=== PATIENT | female | born 1955 | race Caucasian/White ===

== ENCOUNTER 2018-03-23 19:23 | Emergency (ER) | payer BC ==
[2018-03-23] MEDS: ONDANSETRON HCL IV 4 MG/2 ML VIAL IVP ONE (19:49)
[2018-03-23] MEDS: 0.9 % SODIUM CHLORIDE 1000ML 1,000 ML IV SCH (19:49)
[2018-03-23] MEDS: HYDROMORPHONE HCL 2 MG/ML VIAL IVP ONE ×2 (19:49→21:56)
--- NOTE | 2018-03-23 19:50 | Emergency Department Record ---
History of Present Illness - General Stated Complaint: RT RIB PAIN Time Seen by Provider: 03/23/18 19:31 Source: Patient Mode of Arrival: Ambulatory Limitations: No limitations - History of Present Illness Initial Comments: 62 yo female presents to ED for evaluation of right sided rib pain that began approximately 72 hours ago. Patient reports shortness of breath and right chest pain with deep inspiration, denies fall or injury, but reports a long- standing history of osteoporosis. Patient denies lower extremity swelling or pain, denies history of DVT or PE. Patient does take morphine ER for her back pain. MD Complaint: Chest pain Onset/Timin -: Hour(s) Onset: Other Pain Location: Right chest Pain Radiation: None Severity: Severe Quality: Sharp Consistency: Intermittent, Getting worse Improves With: Nothing Worsens With: Inspiration Anginal Symptoms: Nausea Treatments Prior to Arrival: None - Related Data On Oral Contraceptives: No Home Medications Medication Instructions Recorded Confirmed Last Taken Alprazolam [Xanax] 0.25 mg PO ASDIR 03/23/18 03/23/18 Unknown Omeprazole [Prilosec] 20 mg PO DAILY 03/23/18 03/23/18 Unknown Allergies Allergy/AdvReac Type Severity Reaction Status Date / Time Sulfa (Sulfonamide Allergy NAUSEA AND Verified 04/24/14 15:31 Antibiotics) VOMITING Review of Systems Constitutional: Denies: Chills, Fever, Malaise, Night sweats Eyes: Denies: Eye discharge, Eye pain ENT: Denies: Congestion, Ear pain, Epistaxis Respiratory: Denies: Cough, Dyspnea Cardiovascular: Reports: Chest pain, Dyspnea on exertion. Denies: Edema, Paroxysmal nocturnal dyspnea Endocrine: Denies: Fatigue, Heat or cold intolerance Gastrointestinal: Reports: Nausea. Denies: Abdominal pain, Vomiting Genitourinary: Denies: Incontinence, Retention Musculoskeletal: Denies: Arthralgia, Back pain, Gout, Joint swelling Skin: Denies: Bruising, Change in color Neurological: Denies: Abnormal gait, Confusion, Headache Psychiatric: Denies: Anxiety Hematological/Lymphatic: Denies: Anemia, Blood Clots Past Medical History - SOCIAL HISTORY Smoking Status: Current every day smoker - RESPIRATORY Hx COPD: Yes - MUSCULOSKELETAL Hx Arthritis: Yes Comment:: spinal stenosis; ankylosing spondylitis; Deg. disc disease;bone spurs ; pelv Family Medical History Hx Cancer: Mother, Brother/Sister Hx Heart Disease: Father Physical Exam - General General Appearance: Alert, Oriented x3, Cooperative, Moderate distress Limitations: No limitations - Head Head exam: Atraumatic, Normocephalic, Normal inspection Head exam detail: negative: Abrasion, Contusion, Scott's sign, General tenderness, Hematoma, Laceration - Eye Eye exam: Normal appearance. negative: Conjunctival injection, Periorbital swelling, Periorbital tenderness, Scleral icterus - ENT Ear exam: negative: Auricular hematoma, Auricular trauma Nasal Exam: negative: Active bleeding, Discharge, Dried blood, Foreign body, Sinus tenderness Mouth exam: negative: Drooling, Laceration, Tongue elevation - Neck Neck exam: Normal inspection. negative: Meningismus, Tenderness - Respiratory Respiratory exam: Chest wall tenderness (Mild TTP over the right lower anterior- lateral ribs, no one specific area repreduces her pain symptoms however), Decreased breath sounds. negative: Rhonchi, Stridor - Cardiovascular Cardiovascular Exam: Normal rhythm, Normal heart sounds, Tachycardia - GI/Abdominal GI/Abdominal exam: Soft. negative: Rebound, Rigid, Tenderness - Rectal Rectal exam: Deferred - exam: Deferred - Extremities Extremities exam: Normal inspection. negative: Calf tenderness, Pedal edema, Tenderness - Back Back exam: Denies: CVA tenderness (R), CVA tenderness (L) - Neurological Neurological exam: Alert, Normal gait, Oriented X3 - Psychiatric Psychiatric exam: Anxious - Skin Skin exam: Normal color. negative: Abrasion Type of lesion: negative: abrasion Course - Reevaluation(s) Reevaluation #1: 03/23/18 19:47 EKG: Sinus tachycardia 140 RAD, normal intervals No acute ST-T wave changes Patient was seen and examined, initial labs and CTA ordered to exclude PE/PNA/ acute cholecystitis. Zofraon, IVFs, and analgesia ordered as well. Will monitor closely. Reevaluation #2: 03/23/18 20:[address], pulse improved to 126. Laboratory studies were reviewed: WBC 18.3 AG 22 LA 2.0 Reevaluation #3: 03/23/18 20:44 Patient is back from CTA, reviewed personally and appears consistent with bilateral PEs. Heparin ordered to infuse, will arrange transfer to [facility] per patient's choice. Reevaluation #4: 03/23/18 21:13 CTA Chest: Extensive bilateral PE Infiltrate vs. infarct to the RLL Zosyn ordered to infuse in addition to Heparin that is currently infusing. Patient and her SO were updated on all results and the plan for transfer. Case was discussed with Dr. Cheatham, awaiting bed assignment for transfer. Reevaluation #5: 03/23/18 22:29 EMS is present for transfer to [facility]. Patient resting comfortably at this time. Medical Decision Making - Lab Data Result diagrams: 03/23/18 19:43 03/23/18 19:43 Critical Care Time Critical Care Time: Yes Total Critical Care Time: 45 Critical Care Time: Diagnosis and treatment for PE, Sinus tachycardia 120-150, initiation of antibiotics for possible PNA, initiation of transfer to [facility] for further evaluation and treatment. Disposition Disposition: Transfer Clinical Impression: Pulmonary emboli Qualifiers: Pulmonary embolism type: other Chronicity: acute Acute cor pulmonale presence: without acute cor pulmonale Qualified Code(s): I26.99 - Other pulmonary embolism without acute cor pulmonale Disposition: Acute Care Hospital Transfer Transfer To: [facility] Reason For Transfer: SDU/ICU admission Accepting Physician: Chaparrita Time Discussed w/Accepting Physician: 20:51 Condition: (3) Guarded Time of Disposition: 20:51 Quality - Quality Measures Quality Measures: N/A - Blood Pressure Screening Does Patient Have Any of the Following: No Blood Pressure Classification: Pre-Hypertensive BP Reading Systolic Measurement: 126 Diastolic Measurement: 88 Screening for High Blood Pressure: < Pre-Hypertensive BP, F/U Documented > [ [id number]] Pre-Hypertensive Follow-up Interventions: Referral to alternative/primary care provider.
[2018-03-23 19:56] LABS: HEMATOCRIT 45.6 % (35.0-47.0); MEAN CELL VOLUME 86.2 fl (81-97); MEAN CORPUSCULAR HEMOGLOBIN 30.2 pg (27-33); MEAN CORPUSCULAR HGB CONC 35.1 g/dl (32-36); MEAN PLATELET VOLUME 10.3 fl (7.4-10.4); PLATELET COUNT 325 K/uL (130-400); RED BLOOD COUNT 5.29 M/uL (3.80-5.40); RED CELL DISTRIBUTION WIDTH 13.8 % (11.5-14.5); WHITE BLOOD COUNT W/O DIFF 18.3 K/uL (4.2-12.2)
[2018-03-23 20:09] LABS: BLOOD UREA NITROGEN 8 mg/dL (8-23); CREATININE 0.8 mg/dL (0.5-0.9); EST GLOMERULAR FILTRATION RATE > 60 mL/min
[2018-03-23 20:12] LABS: GLUCOSE,RANDOM 127 mg/dL (74-109)
[2018-03-23 20:15] LABS: ALBUMIN 3.9 g/dL (4.0-5.0); ALKALINE PHOSPHATASE 203 U/L (35-104); ALT/SGPT 27 U/L (<33); AST/SGOT 36 U/L (10.0-35.0)
[2018-03-23] MEDS: HEPARIN SODIUM 1000 UNIT/1 ML 10ML VIAL IVP ONE (21:03)
[2018-03-23] MEDS: HEPARIN SODIUM/D5W 25,000 UNITS/500 ML BAG IV SCH (21:03)
[2018-03-23] MEDS: PIPERACILLIN SODIUM/TAZOBACTAM 4.5 GM in 0.9 % SODIUM CHLORIDE 100ML 100 ML IVPB ONE (21:37)
--- NOTE | 2018-03-24 13:07 | CT ANGIOGRAM REPORT ---
DATE: 03/23/2018. EXAM: CT ANGIOGRAM OF THE CHEST. HISTORY: Severe right-sided pain for four to five days. TECHNIQUE: Routine CT angiography images of the chest were obtained following intravenous administration of contrast. The amount and type of contrast can be found in the medical record. The 3D/MIP images were obtained for further assessment. FINDINGS: The heart is not enlarged. No pericardial effusion. There is calcified and noncalcified aortic atherosclerotic plaque. There are extensive filling defects involving all lobes of the lung. Filling defects extend into proximal segmental pulmonary arteries. There does appear to be associated right heart strain. There are a few mildly prominent mediastinal and hilar lymph nodes which may be reactive. Mild, scattered airspace disease within the lungs, most notably the right lower lobe. Given findings elsewhere, suspicious for developing infarct. Trace right pleural effusion. The lungs demonstrate mild emphysema. The visualized upper abdomen demonstrates right renal scarring and calcifications. There is mild prominence of the intra- and extrahepatic biliary ducts of uncertain clinical significance. The pancreatic head not included on the field of view. Please correlate with lab values. No clearly acute osseous abnormality. IMPRESSION: 1. EXTENSIVE PULMONARY EMBOLI BILATERALLY INVOLVING ALL LOBES OF THE LUNG WITH FILLING DEFECTS EXTENDING INTO THE PROXIMAL SEGMENTAL PULMONARY ARTERIES. ASSOCIATED RIGHT-SIDED HEART STRAIN. 2. SCATTERED BILATERAL AIRSPACE DISEASE, MOST NOTABLY IN THE RIGHT LOWER LOBE WHICH MAY RELATE TO DEVELOPING INFARCT. 3. SMALL RIGHT PLEURAL EFFUSION. 4. MILD PULMONARY EMPHYSEMA. 5. INCIDENTAL NOTE MADE OF INTRA- AND EXTRAHEPATIC BILIARY DUCTAL DILATION OF UNCERTAIN SIGNIFICANCE. PANCREATIC HEAD NOT INCLUDED ON THE FIELD OF IMAGING. CORRELATE WITH LAB VALUES AND PREVIOUS IMAGES. FOLLOW UP WITH DEDICATED CT OF THE ABDOMEN AND PELVIS MAY ULTIMATELY BE NECESSARY. The findings were discussed with Dr. Alberto by myself at 9:12 p.m. JOB NUMBER: [id number] MTDD
== END 2018-03-23 22:33 | disposition short-term general hospital (02) ==
LOC: ER 19:23
DX: I26.99 Other pulmonary embolism without acute cor pulmonale (principal); R07.81 Pleurodynia; R06.02 Shortness of breath; R11.0 Nausea; J44.9 Chronic obstructive pulmonary disease, unspecified; M81.0 Age-related osteoporosis without current pathological fracture; F17.210 Nicotine dependence, cigarettes, uncomplicated
CPT/HCPCS: 71275; 80053; 83605; 84484; 85027; 93005; 93010; 96365; 96366; 96368; 96375; 96376; 99291; J2405; J2543; J7030